=== PATIENT | male | born 1975 | race Hispanic/Latino ===

== ENCOUNTER 2023-01-02 16:13 | Emergency (ER) | payer SELFPAY ==
[2023-01-02] MEDS ORDERED: Naproxen 500 MG TAB ONE (17:02)
== END 2023-01-02 17:13 | disposition home or self-care (01) ==
LOC: NAV ERS 16:13
DX: M19.071 Primary osteoarthritis, right ankle and foot (principal); I10 Essential (primary) hypertension; D36.7 Benign neoplasm of other specified sites; M77.30 Calcaneal spur, unspecified foot